=== PATIENT | female | born 1930 | race Caucasian/White ===

== ENCOUNTER 2020-03-01 14:12 | Emergency (ER) | payer MEDICARE, OTHER ==
[~2020-03-01 14:12] MED LIST: ASPIRIN CHEWABL81 MG PO; CEFUROXIME500 MG PO; HYDRALAZINE HCL10 MG PO; LIPITOR TAB 2020 MG PO; NORVASC 5 MG TAB5 MG PO; OMNICEF 300 MG300 MG PO; PRILOSEC OTC20 MG PO; REXULTI PO; STOOL SOFTENER PO; TRINTELLIX PO; ZOFRAN ODT 4 MG4 MG PO
[2020-03-01 16:13] LABS: HEMOGLOBIN 12.8 gm/dl (12.3-15.3); RED BLOOD COUNT 4.19 M/UL (4.00-5.10); WHITE BLOOD COUNT 4.9 K/UL (4.5-11.0)
== END 2020-03-01 21:34 | disposition short-term general hospital (02) ==
LOC: ER1 14:12
PROVIDERS: Family Medicine
DX: K80.50 Calculus of bile duct without cholangitis or cholecystitis without obstruction (principal); Z86.79 Personal history of other diseases of the circulatory system; Z20.822 Contact with and (suspected) exposure to COVID-19
CPT/HCPCS: 71045; 80053; 82550; 82553; 83605; 83690; 83874; 84484; 85025; 85610; 96365; 96375; 99285; J2270; J2405; J2543; Q9967; U0002

== ENCOUNTER 2020-03-08 12:16 | Emergency (ER) | payer MEDICARE, OTHER ==
[2020-03-08 15:15] LABS: BUN/CREATININE RATIO 18 (0-10)
[2020-03-08 15:44] LABS: HEMOGLOBIN 12.1 gm/dl (12.3-15.3); RED BLOOD COUNT 3.9 M/UL (4.00-5.10); WHITE BLOOD COUNT 9.1 K/UL (4.5-11.0)
== END 2020-03-08 17:57 | disposition home or self-care (01) ==
LOC: ER1 12:16
PROVIDERS: Physician Assistant Medical
DX: S30.1XXA Contusion of abdominal wall, initial encounter (principal); R11.0 Nausea; R33.9 Retention of urine, unspecified; R30.0 Dysuria; I10 Essential (primary) hypertension; Z90.49 Acquired absence of other specified parts of digestive tract; Z87.440 Personal history of urinary (tract) infections; X58.XXXA Exposure to other specified factors, initial encounter
CPT/HCPCS: 80053; 81001; 85025; 96374; 96375; 99284; J2270; J2405; Q9967